=== PATIENT | male | born 1985 | race Caucasian/White ===

== ENCOUNTER 2016-11-12 13:49 | Emergency (ER) | payer OTHER ==
--- NOTE | 2016-11-12 13:55 | EDPHY ---
H & P Time Seen by Provider: 11/12/16 13:50 HPI/ROS: CHIEF COMPLAINT: Vomiting, alcohol intoxication HISTORY OF PRESENT ILLNESS: 31-year-old male presents to the emergency department by ambulance with acute alcohol intoxication. The patient was at the the [facility] football game. He admits to drinking a large amount of alcohol and not eating enough food today. He denies any reported trauma. He has vomited 3 times. He denies chest pain or difficulty breathing. Denies abdominal pain. Denies head injury. Denies neck or back pain. REVIEW OF SYSTEMS: Constitutional: No fever, no chills. Eyes: No double or blurry vision. ENT: No sore throat. Respiratory: No cough, no shortness of breath. Cardiac: No chest pain. Gastrointestinal: Vomiting as above. No diarrhea. No abdominal pain. Genitourinary: No dysuria. Musculoskeletal: No neck or back pain. Skin: No rashes. Neurological: No headache. (Lina Fields) Past Medical/Surgical History: Negative (Lina Fields) Social History: From [place] (Lina Fields) Physical Exam: General Appearance: Alert, no distress. Smells strongly of alcohol. Slurring his words. No physical signs of trauma to his head. Mentating normally and answering questions appropriately. Eyes: Pupils equal and round. Extraocular motions are all intact. The ENT: Mouth: Mucous membranes moist. Respiratory: No wheezing, rhonchi, or rales, lungs are clear to auscultation. Cardiovascular: Regular rate and rhythm. Gastrointestinal: Abdomen is soft and nontender, no masses, no rebound or guarding, bowel sounds normal. Neurological: Alert and oriented x 3, cranial nerves II through XII grossly intact Skin: Warm and dry, no rashes. Musculoskeletal: Nontender to palpate along the cervical, thoracic or lumbar spine. Neck is supple. Extremities: Full range of motion and no peripheral edema. Psychiatric: Patient is oriented X 3, there is no agitation. (SarikaLina esteves) Constitutional: Initial Vital Signs Temperature (C) 36.5 C 11/12/16 13:52 Heart Rate 85 11/12/16 13:52 Respiratory Rate 16 11/12/16 13:52 Blood Pressure 101/60 11/12/16 13:52 O2 Sat (%) 94 11/12/16 13:52 O2 Delivery Mode Room Air Allergies/Adverse Reactions: No Known Allergies Allergy (Unverified 11/12/16 13:52) Home Medications: Medication Instructions Recorded NK [No Known Home Meds] 11/12/16 Medical Decision Making ED Course/Re-evaluation: The patient was evaluated and managed by the physician's team assistant. My cosignature indicates that I reviewed the chart and I agree with the findings and plan of care as documented. I am the secondary supervising physician. ( Falguni Hong) 31-year-old male presents to the emergency department with acute alcohol intoxication by ambulance. He was monitored for several hours. He found a sober ride since he declined [facility]. Patient had no complaints upon discharge. Normal gait. (Lina Fields) Differential Diagnosis: Altered mental status including but not limited to hypoglycemia, infectious process, electrolyte abnormality, head injury and intoxicants. (Lina Fields) - Data Points Medications Given: Discontinued Medications Ondansetron HCl (Zofran Odt) 4 mg PO EDNOW ONE Stop: 11/12/16 14:05 Last Admin: 11/12/16 14:05 Dose: 4 mg Departure - Departure Disposition: Home, Routine, Self-Care Clinical Impression: Alcoholic intoxication Qualifiers: Complication of substance-induced condition: uncomplicated Qualified Code(s): F10.920 - Alcohol use, unspecified with intoxication, uncomplicated Condition: Good Instructions: Alcohol Intoxication (ED) Additional Instructions: You were given information to the [facility] for your alcohol withdrawal. Referrals: [facility] [Outside] - As per Instructions
[2016-11-12] MEDS ORDERED: ONDANSETRON DISINTEGRATING 4 MG TAB ONE (13:57)
[2016-11-12] MEDS ORDERED: ONDANSETRON DISINTEGRATING 4 MG TAB PO ONE (14:04)
[2016-11-12 17:16] VITALS: BP 134/82; PULSE 78; RESP 18; TEMP 98.2; O2SAT 97
== END 2016-11-12 17:15 | disposition home or self-care (01) ==
DX: F10.920 Alcohol use, unspecified with intoxication, uncomplicated (principal)